=== PATIENT | male | born 1950 | race Caucasian/White ===

== ENCOUNTER → 2016-11-16 | Outpatient (REF) | payer BC ==
[~2016-11-16] MED LIST: AMBI10TA PO; COUM10TA PO; NAPR500T2 PO; PERC5TAB6 PO; PROS5TAB PO; SERRAPEPTASE PO; TRAM50TA2 PO
== END ==
LOC: M LAB REF 12:36
PROVIDERS: ATTEND Internal Medicine
DX: Z01.89 Encounter for other specified special examinations (principal)

== ENCOUNTER 2017-11-21 19:08 | Emergency (ER) | payer BC ==
[2017-11-21] MEDS: LIDOCAINE 1% MDV 20ML VIAL SC (21:07)
[2017-11-21] MEDS: CEPHALEXIN 500 MG CAP PO (23:15)
[2017-11-21] MEDS: traMADol 50 MG TAB PO (23:15)
== END 2017-11-21 23:20 | disposition home or self-care (01) ==
LOC: M ED 19:08
DX: S61.012A Laceration without foreign body of left thumb without damage to nail, initial encounter (principal); S66.202A Unspecified injury of extensor muscle, fascia and tendon of left thumb at wrist and hand level, initial encounter; W26.0XXA Contact with knife, initial encounter; Y92.099 Unspecified place in other non-institutional residence as the place of occurrence of the external cause; Y93.9 Activity, unspecified
CPT/HCPCS: 12002

== ENCOUNTER 2019-10-30 13:05 | Day surgery (SDC) | payer MEDICARE ==
[~2019-10-30] VITALS: Ht 185.4 cm; Wt 94.8 kg
[~2019-10-30 13:05] MED LIST changes: +KEFL500C17 PO; +NAPR-885 PO; -NAPR500T2 PO; +NS 1,000 ML IV ONE; +PERC5TAB12 PO; -PERC5TAB6 PO; +ULTR50TA8 PO
[2019-10-30] MEDS ORDERED: PROPOFOL 200 MG/20 ML VIAL As Ordered ONE ×2 (13:53→14:22)
[2019-10-30] MEDS ORDERED: LIDOCAINE 2% INJ 100 MG/5 ML SDV (FOR ANES.) As Ordered ONE ×2 (13:53→14:22)
[2019-10-30 14:25] VITALS: BP 115/69
--- NOTE | 2019-10-30 14:25 | ROOR ---
Patient Name: Colton Rojas Procedure Date: 10/30/2019 1:42 PM Date of : 1950 Age: 69 Room: [facility] Gender: Male Note Status: Finalized Procedure: Total Colonoscopy to Cecum Indications: Screening in patient at increased risk: Colorectal cancer in father before age 60 Providers: Deon Townsend MD Referring MD: SARKIS NUNEZ JR, MD Requesting Provider: Medicines: Monitored Anesthesia Care Complications: No immediate complications. Procedure: Pre-Anesthesia Assessment: - The heart rate, respiratory rate, oxygen saturations, blood pressure, adequacy of pulmonary ventilation, and response to care were monitored throughout the procedure. The Colonoscope was introduced through the anus and advanced to the cecum, identified by appendiceal orifice and ileocecal valve. The colonoscopy was performed without difficulty. The patient tolerated the procedure well. The quality of the bowel preparation was excellent. Findings: The perianal and digital rectal examinations were normal. Non-bleeding internal hemorrhoids were found during retroflexion. The hemorrhoids were small and Grade I (internal hemorrhoids that do not prolapse). No other significant abnormalities were identified in a careful examination of the remainder of the colon. The exam was otherwise without abnormality on direct and retroflexion views. Impression: - Non-bleeding internal hemorrhoids. - The examination was otherwise normal on direct and retroflexion views. - No specimens collected. - The exam was otherwise normal to the cecum. Recommendation: - Patient has a contact number available for emergencies. The signs and symptoms of potential delayed complications were discussed with the patient. Return to normal activities tomorrow. Written discharge instructions were provided to the patient. - High fiber diet. - Discharge patient to home. - Continue present medications. - Repeat colonoscopy in 5 years for screening purposes. - Return to referring physician. - The findings and recommendations were discussed with the patient's family. Deon Townsend MD Deon Tonwsend MD 10/30/2019 2:25:33 PM Electronically signed by Deon Townsend MD Number of Addenda: 0 Note Initiated On: 10/30/2019 1:42 PM Estimated Blood Loss: Estimated blood loss: none.
== END 2019-10-30 15:10 | disposition home or self-care (01) ==
LOC: M OPP 13:05
PROVIDERS: ATTEND Internal Medicine Gastroenterology
DX: Z12.11 Encounter for screening for malignant neoplasm of colon (principal); Z80.0 Family history of malignant neoplasm of digestive organs; K64.0 First degree hemorrhoids

== ENCOUNTER → 2020-09-27 | Outpatient (CLI) | payer SELFPAY ==
[~2020-09-27] MED LIST changes: -NS 1,000 ML IV ONE
== END ==
LOC: M LABSMTC 13:36
PROVIDERS: ATTEND Pediatrics
DX: Z20.828 Contact with and (suspected) exposure to other viral communicable diseases (principal)

== ENCOUNTER → 2021-11-06 | Outpatient (REF) | LOC: M LABSMTC 09:07 | PROVIDERS: ATTEND Pediatrics | DX: Z20.822 Contact with and (suspected) exposure to COVID-19 (principal) ==

== ENCOUNTER → 2022-01-26 | Outpatient (CLI) | payer MEDICARE | LOC: M WUC 14:13 | PROVIDERS: ATTEND Physician Assistant Medical | DX: M16.12 Unilateral primary osteoarthritis, left hip (principal) ==

== ENCOUNTER → 2022-09-23 | Outpatient (CLI) | payer MEDICARE ==
[2022-09-23 16:01] LABS: RHEUMATOID FACTOR QUANT < 3.5 IU/ML (<14)
== END ==
LOC: M PLALAB 09:36
PROVIDERS: ATTEND Physician Assistant
DX: M17.12 Unilateral primary osteoarthritis, left knee (principal)

== ENCOUNTER → 2023-02-01 | Outpatient (CLI) | payer MEDICARE | LOC: M WUC 10:12 | PROVIDERS: ATTEND Nurse Practitioner Family | DX: M25.541 Pain in joints of right hand (principal); M25.542 Pain in joints of left hand ==

== ENCOUNTER → 2023-04-02 | Outpatient (REF) | payer MEDICARE ==
[2023-04-02 14:21] LABS: RHEUMATOID FACTOR QUANT < 3.5 IU/ML (<14)
[2023-04-02 14:23] LABS: URIC ACID 5.8 MG/DL (3.7-9.2)
[2023-04-03 21:10] LABS: ANA (HEP2) Positive (.)
== END ==
LOC: M LAB REF 12:17
PROVIDERS: ATTEND Internal Medicine
DX: M25.549 Pain in joints of unspecified hand (principal)

== ENCOUNTER → 2023-10-05 | Outpatient (CLI) | payer MEDICARE ==
[~2023-10-05] MED LIST changes: +FINA-48 PO; -PROS5TAB PO
== END ==
LOC: M RAD 10:07
PROVIDERS: ATTEND Internal Medicine Rheumatology
DX: M53.3 Sacrococcygeal disorders, not elsewhere classified (principal); R76.8 Other specified abnormal immunological findings in serum; M25.50 Pain in unspecified joint; R79.82 Elevated C-reactive protein (CRP)

== ENCOUNTER → 2024-07-05 | Outpatient (CLI) | payer MEDICARE | LOC: M RAD 07:34 | PROVIDERS: ATTEND Student in an Organized Health Care Education/Training Program | DX: N40.1 Benign prostatic hyperplasia with lower urinary tract symptoms (principal) ==

== ENCOUNTER → 2025-08-03 | Outpatient (CLI) | payer MEDICARE ==
[~2025-08-03] MED LIST changes: -AMBI10TA PO; +ZOLP-533 PO
== END ==
LOC: M RAD 08:18
PROVIDERS: ATTEND Nurse Practitioner Family
DX: S09.93XA Unspecified injury of face, initial encounter (principal); J34.2 Deviated nasal septum; W55.82XA Struck by other mammals, initial encounter